=== PATIENT | female | born 1990 | race Hispanic/Latino ===

== ENCOUNTER → 2018-02-17 | Outpatient (CLI) | payer OTHER, SELFPAY ==
--- NOTE | 2018-02-17 | DI.MRI.S_ITS ---
PROCEDURE: MR HEAD/BRAIN WO/W CON INDICATIONS: headaches, numbness TECHNIQUE: Noncontrast axial T1 spin echo, axial T2 fast spin echo, sagittal and axial FLAIR, coronal T2 fast spin echo, axial gradient echo, axial diffusion and ADC through the brain. After the administration of contrast, axial and coronal 3D VIBE or T1 spin echo with fat saturation through the brain. COMPARISON: [facility], MR, BRAIN W/O CONTRAST, 04/17/2015, 8:28. FINDINGS: Image quality: Diagnostic pain CSF Spaces: Basal cisterns are patent. No extra-axial fluid collections. Ventricles are normal in size and shape. Brain: No midline shift. No intracranial bleeds or masses. No abnormal intracranial enhancement. The brainstem appears normal. Diffusion-weighted images demonstrate no acute ischemic insults. No chronic ischemic insults. No focal parenchymal lesions are identified. Normal intravascular flow voids are present. Skull and face: Calvarial marrow is normal in signal. Orbits appear normal. Sinuses: Sinuses and mastoids appear clear. IMPRESSION: 1. No acute intracranial hemorrhage or ischemia. 2. No focal parenchymal lesions or abnormal enhancement of the brain. Dictated by: Regan Giron M.D. on 02/17/2018 at 17:02 Approved by: Regan Giron M.D. on 02/17/2018 at 17:04
== END ==
LOC: MRI 16:58
PROVIDERS: Family Provider Internal Medicine; PCP Family Medicine; Visit Provider Family Medicine
DX: R51 Headache (principal); R20.0 Anesthesia of skin
CPT/HCPCS: 70553; A9579

== ENCOUNTER → 2018-06-30 13:06 | Outpatient (CLI) | payer OTHER, SELFPAY ==
--- NOTE | 2018-07-07 10:33 | PM.PFT.1 ---
Pulmonary Function Test Referral & Results Date Patient Seen: 06/30/18 Requesting provider: Rosendo Tierney Indication: Dyspnea Results: The spirometry demonstrates an FVC of 3.42 L which is 93% of predicted. The FEV1 was measured at 3.04 L which is 98% of predicted. The FEV1/FVC ratio was 89 which is 105% of predicted. Following the administration of bronchodilator there was no appreciable change in above normal numbers. Lung volumes show an SVC of 3.36 L which is 94% of predicted. The diffusing capacity was measured at 24.83 which is 180% of predicted. The maximum voluntary ventilation was normal Interpretation: This study demonstrates normal pulmonary function
== END ==
PROVIDERS: PCP Family Medicine; Visit Provider Family Medicine
DX: R06.00 Dyspnea, unspecified (principal)
CPT/HCPCS: 94010; 94060; 94726; 94729

== ENCOUNTER → 2018-11-10 09:59 | Outpatient (CLI) | payer OTHER, SELFPAY ==
--- NOTE | 2018-11-10 10:01 | DI.US.S_ITS ---
LIMITED ULTRASOUND OF LEFT BREAST: 11/10/2018 CLINICAL: Palpable left breast lump. [facility] of the left breast upper outer quadrant was performed on the area of interest. IMPRESSION: NEGATIVE There is no sonographic evidence of malignancy. There is no abnormality seen in the left breast to correspond with the palpable abnormality in the upper outer quadrant, however, clinical followup is recommended. This exam was interpreted at Station ID: [id number]. Electronically Signed By: Georges ahrry/:11/10/2018 12:34:30 letter sent: Clinical Evaluation Ultrasound BI-RADS: 1 Negative
--- NOTE | 2018-11-10 10:01 | DI.MG.S_ITS ---
BILATERAL DIGITAL DIAGNOSTIC MAMMOGRAM 3D/2D: 11/10/2018 CLINICAL: Left breast lump. Baseline exam. No prior exams were available for comparison. The tissue of both breasts is extremely dense, which lowers the sensitivity of mammography. No significant masses, calcifications, or other findings are seen in either breast. IMPRESSION: INCOMPLETE: NEEDS ADDITIONAL IMAGING EVALUATION There is no abnormality seen in the left breast to correspond with the palpable abnormality at 1 o'clock, however, ultrasound is recommended. This exam was interpreted at Station ID: [id number]. NOTE: For mammograms, a report in lay terms will be sent to the patient. Approximately 15% of breast malignancies will not be visualized mammographically. In the management of a palpable breast mass, a negative mammogram must not discourage biopsy of a clinically suspicious lesion. Electronically Signed By: Georges harry/bushra:11/10/2018 10:46:30 letter sent: Need Ultrasound ACR BI-RADS Category 0: Incomplete [id number]
== END ==
PROVIDERS: PCP Family Medicine; Visit Provider Registered Nurse
DX: R92.8 Other abnormal and inconclusive findings on diagnostic imaging of breast (principal); N63.21 Unspecified lump in the left breast, upper outer quadrant
CPT/HCPCS: 76642; 77066; G0279

== ENCOUNTER → 2019-01-21 08:34 | Outpatient (CLI) | payer OTHER, SELFPAY ==
--- NOTE | 2019-01-21 | DI.RAD.S_ITS ---
PROCEDURE: XR CERVICAL SPINE 2V OR 3V INDICATIONS: NECK PAIN RADIATING DOWN ARMS TECHNIQUE: 3 view(s) of the cervical spine were acquired. COMPARISON: None. FINDINGS: Bones: No fractures or dislocations to the T1 level. The lateral masses of C1 appear intact on the odontoid view. No suspicious bony lesions. Soft tissues: No prevertebral soft tissue swelling. IMPRESSION: Normal examination, source of current pain is not found. CT or MR scanning may be warranted depending on the clinical status. Dictated by: Tom Edward M.D. on 01/21/2019 at 11:35 Approved by: Tom Edward M.D. on 01/21/2019 at 11:35
== END ==
PROVIDERS: PCP Family Medicine; Visit Provider Family Medicine
DX: M54.2 Cervicalgia (principal); M79.602 Pain in left arm; M79.601 Pain in right arm
CPT/HCPCS: 72040

== ENCOUNTER → 2019-03-14 12:52 | Outpatient (CLI) | payer OTHER, SELFPAY ==
--- NOTE | 2019-03-14 | DI.CT.S_ITS ---
PROCEDURE: CT ABDOMEN W CON INDICATIONS: Gastro-esophageal reflux disease TECHNIQUE: After the administration of oral and intravenous contrast, 5 mm thick sections acquired from the diaphragms to the iliac crests. 5 mm thick coronal and sagittal reformats were acquired. For radiation dose reduction, the following was used: automated exposure control, adjustment of mA and/or kV according to patient size. COMPARISON: None. FINDINGS: Image quality: Excellent. Lung bases: Lung bases are clear. Heart size is normal. Solid organs: Liver is normal in size and enhancement. Gallbladder appears normal. Biliary system is non dilated. Pancreas enhances normally. Spleen is normal in size and enhancement. No adrenal nodules. Kidneys are normal in size, without hydronephrosis. Peritoneum and bowel: Contrast enhanced bowel loops appear normal in caliber. No free fluid or air. Nodes and vessels: No retroperitoneal or mesenteric adenopathy by size criteria. Aorta and inferior vena cava are normal in size. Bones: No suspicious bony lesions. No vertebral body compression fractures. Miscellaneous: No ventral hernias. IMPRESSION: The abdomen and upper pelvis appears normal. No sign of adenopathy or inflammation. A source of reported persistent abdominal pain extending over one year is not found. At the lung bases no lesions are seen. Dictated by: Tom Edward M.D. on 03/14/2019 at 15:13 Approved by: Tom Edward M.D. on 03/14/2019 at 15:15
== END ==
PROVIDERS: PCP Family Medicine; Visit Provider Family Medicine
DX: K21.9 Gastro-esophageal reflux disease without esophagitis (principal); R10.9 Unspecified abdominal pain
CPT/HCPCS: 74160; Q9967

== ENCOUNTER → 2019-05-15 16:43 | Outpatient (CLI) | payer OTHER, SELFPAY ==
--- NOTE | 2019-05-15 16:46 | DI.MRI.S_ITS ---
PROCEDURE: MR KNEE RT WO CON INDICATIONS: Six-month history popliteal fossa pain TECHNIQUE: Noncontrast sagittal PD fast spin echo and T2 fast spin echo with fat saturation, sagittal 3-D FLASH with fat saturation; coronal T1 spin echo and PD fast spin echo with fat saturation, and axial PD fast spin echo with fat saturation through the knee. COMPARISON: None. FINDINGS: Image quality: Excellent. Menisci: The medial and lateral menisci demonstrate normal morphology and internal signal. The meniscal root ligaments appear intact. Cruciate ligaments: The anterior and posterior cruciate ligaments appear intact. Medial structures: The medial collateral ligament appears intact. There is minimal semimembranosus insertional tendinopathy and thickening. Visualized portions of the pes anserinus tendons appear normal. No abnormal bursal fluid. Lateral structures: lateral collateral ligament demonstrates thickening and intrasubstance signal change in keeping with sprain, although technically age indeterminate. The biceps femoris tendon appears intact. The popliteus tendon appears normal; the popliteofibular ligament appears intact. The posterosuperior and anteroinferior popliteomeniscal fascicles appear intact. The arcuate and fabellofibular ligaments appear intact, on either side of the lateral inferior geniculate artery. Iliotibial band appears normal. Anterior structures: The quadriceps and patellar tendons appear intact although there is mild proximal patellar tendinopathy. Patellar alignment is normal. No femoral trochlear dysplasia or ventral trochlear prominence. No edema in the infrapatellar fat pad. Bones and cartilage: No bone marrow contusions or fractures. The The cartilage of the medial and lateral femorotibial compartments, as well as the patellofemoral compartment, appears normal in thickness. Joint space: There is physiologic knee joint fluid. No Carlos's cyst. Normal appearing synovial plicae are incidentally noted. IMPRESSION: Minimal semimembranosus insertional tendinopathy. Mild proximal lateral collateral ligament sprain, probably chronic. Mild proximal patellar tendinopathy, age indeterminate. Elsewhere, no internal derangement. Dictated by: Rony Kuo M.D. on 05/16/2019 at 9:06 Approved by: Rony Kuo M.D. on 05/16/2019 at 9:12
== END ==
PROVIDERS: PCP Family Medicine; Visit Provider Family Medicine
DX: S83.421A Sprain of lateral collateral ligament of right knee, initial encounter (principal); M76.51 Patellar tendinitis, right knee; M25.561 Pain in right knee
CPT/HCPCS: 73721

== ENCOUNTER → 2019-08-15 13:00 | Outpatient (CLI) | payer OTHER, SELFPAY ==
--- NOTE | 2019-08-15 13:01 | DI.US.S_ITS ---
PROCEDURE: US EXTREMITY NONVASC LOWER RT INDICATIONS: PAIN, LUMP LATERAL RIGHT THIGH TECHNIQUE: Real-time scanning was performed of the right mid thigh, with image documentation. COMPARISON: None. FINDINGS: No sonographic abnormality visualized involving the right mid lateral right thigh. IMPRESSION: No sonographic correlate to the palpable abnormality. If indicated, soft tissue MRI could be performed for further assessment. Dictated by: Garett CHAPARRO Interpreted: Georges Desir MD on 08/15/2019 at 13:51 Approved by: Georges Desir M.D. on 08/15/2019 at 15:45
== END ==
PROVIDERS: PCP Family Medicine; Visit Provider Nurse Practitioner Family
DX: R22.41 Localized swelling, mass and lump, right lower limb (principal)
CPT/HCPCS: 76882

== ENCOUNTER → 2019-08-21 06:22 | Outpatient (CLI) | payer OTHER, SELFPAY ==
--- NOTE | 2019-08-21 06:23 | DI.MRI.S_ITS ---
PROCEDURE: MR FEMUR RT WO/W CON INDICATIONS: lump upper right leg TECHNIQUE: Noncontrast coronal T1 spin echo and STIR, sagittal T1 spin echo with fat saturation and STIR, axial T1 spin echo and T2 fast spin echo with fat saturation. After the administration of contrast, axial/sagittal/coronal T1 spin echo with fat saturation through the right femur. COMPARISON: [facility], US, US EXTREMITY NONVASC LOWER RT, 08/15/2019, 13:10. FINDINGS: Image quality: Excellent. Bones: The visualized bone marrow demonstrates normal signal on all sequences. The overlying cortex appears intact. No abnormal intraosseous enhancement. Soft tissues: In the region of the fiducial posterolateral aspect of the upper right thigh, no underlying mass or discrete fluid collection is seen. There is normal fat signal intensity. Technically cannot exclude unencapsulated lipoma. This is concordant with the ultrasound findings from comparison study dated 08/15/19. Mild subcutaneous edema and skin thickening seen at the level of the right gluteal region potentially related to injections however please correlate clinically. Minimal trochanteric bursitis is incidentally noted. No lymphadenopathy identified. Muscle signal intensity unremarkable IMPRESSION: No discrete mass or focal fluid collection, abscess seen in the region of the skin fiducial marker placed in the lateral aspect of the upper right thigh. Technically, subtle unencapsulated lipoma is still a differential consideration and recommend clinical management. Minimal trochanteric bursitis. Right gluteal subcutaneous edema potentially related to injections however does correlate clinically. Dictated by: Rony Kuo M.D. on 08/21/2019 at 8:03 Approved by: Rony Kuo M.D. on 08/21/2019 at 8:10
== END ==
PROVIDERS: PCP Family Medicine; Visit Provider Nurse Practitioner Family
DX: R22.41 Localized swelling, mass and lump, right lower limb (principal)
CPT/HCPCS: 73720

== ENCOUNTER → 2019-11-11 08:58 | Outpatient (CLI) | payer OTHER, SELFPAY ==
--- NOTE | 2019-11-11 | DI.MRI.S_ITS ---
PROCEDURE: MR HEAD/BRAIN WO CON INDICATIONS: Chronic papilledema OU TECHNIQUE: Noncontrast axial T1 spin echo, axial T2 fast spin echo, sagittal and axial FLAIR, coronal T2 fast spin echo, axial gradient echo, axial diffusion and ADC through the brain. COMPARISON: [facility], MR, BRAIN W/O CONTRAST, 04/17/2015, 8:28. FINDINGS: Image quality: Excellent. CSF Spaces: Basal cisterns are patent. No extra-axial fluid collections. Ventricles are normal in size and shape. Brain: No intracranial masses or hemorrhage. Rice/white matter interface is normal. Brainstem appears normal. Diffusion-weighted images demonstrate no acute ischemic insult. No chronic ischemic insults. No GRE weighted abnormalities identified in the brain parenchyma. Normal intravascular flow voids are present. Skull and face: Calvarium has normal marrow signal. Slight prominence of CSF space along the intraorbital optic nerves compatible with clinical finding of papilledema. Sinuses: Mucosal thickening noted in the maxillary sinuses, left greater than right. The mastoids are clear. IMPRESSION: 1. No acute intracranial disease process. 2. Slight prominence of CSF space along the optic nerves bilaterally compatible with clinically reported papilledema. Cause of papilledema is not identified by MRI imaging. Dictated by: Shelby Bhatia MD, PhD on 11/12/2019 at 8:01 Approved by: Shelby Bhatia MD, PhD on 11/12/2019 at 8:07
--- NOTE | 2019-11-11 | DI.MRI.S_ITS ---
PROCEDURE: MR ANGIO HEAD WO CON INDICATIONS: CHRONIC PAPILLIDEMIA TECHNIQUE: Noncontrast axial 3-D [id number] MR angiogram, with 3-dimensional maximum intensity projection (MIP) reformats of the internal carotid arteries and posterior circulation then performed. COMPARISON: None. FINDINGS: Image quality: Excellent. Anterior circulation: Intracranial internal carotid arteries demonstrate normal size and intraluminal flow signal. The flow within the paired anterior cerebral arteries is normal and symmetric. The flow within the middle cerebral arteries is normal and symmetric. The anterior communicating artery is seen. No stenoses, occlusions, or aneurysms. Posterior circulation: Visualized portions of the vertebral arteries demonstrate normal caliber, and join to form a normal appearing basilar artery. The flow within the posterior cerebral arteries is normal and symmetric. No stenoses, occlusions, or aneurysms. IMPRESSION: 1. Negative MR angiogram of the brain. No large vessel occlusion, vascular stenosis, vascular dissection or aneurysm. 2. MR venogram demonstrates absence of flow in the left transverse sinus which could be due to congenital hypoplasia or occlusion. Recommend MRI of the brain with contrast for further characterization. Dictated by: Shelby Bhatia MD, PhD on 11/12/2019 at 11:25 Approved by: Shelby Bhatia MD, PhD on 11/12/2019 at 11:33
== END ==
PROVIDERS: PCP Family Medicine; Referring Provider Family Medicine; Visit Provider Family Medicine
DX: H47.10 Unspecified papilledema (principal)
CPT/HCPCS: 70544; 70551

== ENCOUNTER → 2019-11-26 10:05 | Outpatient (CLI) | payer OTHER, SELFPAY ==
--- NOTE | 2019-11-26 10:08 | DI.MRI.S_ITS ---
PROCEDURE: MR HEAD/BRAIN W CON INDICATIONS: PAPILLEDEMA TECHNIQUE: Noncontrast images were recently performed and were not repeated. After the administration of contrast, axial and coronal VIBE with fat saturation through the brain. COMPARISON: [facility], CT, HEAD WITHOUT CONTRAST, 03/19/2014, 16:31. [facility], MR, MR ANGIO HEAD WO CON, 11/11/2019, 9:03. [facility], MR, MR HEAD/BRAIN WO CON, 11/11/2019, 9:03. FINDINGS: Image quality: Excellent. On these postcontrast images only, no masses or areas of abnormal enhancement can be seen. The globes are scrutinized and demonstrate no significant abnormality. No significant abnormality of the optic nerves are seen. No orbital masses are seen. The brain volume demonstrates a normal appearance. No abnormal enhancement can be seen on the meninges. IMPRESSION: Normal post contrast only study. No masses or abnormal enhancement can be seen. Dictated by: Dorian Winters M.D. on 11/26/2019 at 11:30 Approved by: Dorian Winters M.D. on 11/26/2019 at 11:32
== END ==
PROVIDERS: PCP Family Medicine; Referring Provider Family Medicine; Visit Provider Family Medicine
DX: H47.10 Unspecified papilledema (principal)
CPT/HCPCS: 70552

== ENCOUNTER → 2020-03-25 14:30 | Outpatient (CLI) | payer OTHER, SELFPAY ==
--- NOTE | 2020-03-25 | DI.US.S_ITS ---
PROCEDURE: US EXTREMITY NONVASC LOWER RT INDICATIONS: LOCALIZED SWELLING, MASS, LUMP TECHNIQUE: Real-time scanning was performed of the right lower extremity, with image documentation. COMPARISON: [facility], EXTREMITY NONVASC LOWER RT, 08/15/2019, 13:10. FINDINGS: 0.9 x 0.5 x 0.5 cm soft tissue mass present within the right thigh corresponding to the palpable abnormality. Mass appears to have herniated through a soft tissue plane and is reducible with compression. IMPRESSION: Mass corresponding to the palpable abnormality within the right lower extremity which appears to have herniated through a soft tissue plane and is reducible with transducer compression. Dictated by: Garett Holloway [facility] Interpreted: Alexi Ash MD on 03/25/2020 at 16:25 Approved by: Alexi Ash M.D. on 03/25/2020 at 17:21
== END ==
PROVIDERS: PCP Family Medicine; Referring Provider Family Medicine; Visit Provider Family Medicine
DX: R22.41 Localized swelling, mass and lump, right lower limb (principal)
CPT/HCPCS: 76882

== ENCOUNTER → 2021-05-27 17:51 | Outpatient (CLI) | payer OTHER, SELFPAY ==
--- NOTE | 2021-05-27 17:55 | DI.RAD.S_ITS ---
PROCEDURE: XR SHOULDER LT MIN 2V INDICATIONS: left shoulder pain TECHNIQUE: 3 views of the shoulder were acquired. COMPARISON: None. FINDINGS: Bones: No fractures or dislocations. No suspicious bony lesions. Visualized ribs appear intact. Soft tissues: No suspicious soft tissue calcifications. IMPRESSION: No shoulder fracture or dislocation. No gross soft tissue abnormality. Dictated by: Alexi Ash M.D. on 05/27/2021 at 18:08 Approved by: Alexi Ash M.D. on 05/27/2021 at 18:10
== END ==
PROVIDERS: PCP Family Medicine; Referring Provider Registered Nurse; Visit Provider Registered Nurse
DX: M25.512 Pain in left shoulder (principal)
CPT/HCPCS: 73030

== ENCOUNTER → 2021-06-01 14:02 | Outpatient (CLI) | payer OTHER, SELFPAY ==
[2021-06-01 15:54] LABS: COVID19 -Nasal RAPID Negative (Negative)
== END ==
PROVIDERS: PCP Family Medicine; Visit Provider Nurse Practitioner
DX: Z20.822 Contact with and (suspected) exposure to COVID-19 (principal); J02.9 Acute pharyngitis, unspecified; R05 Cough
CPT/HCPCS: 87635

== ENCOUNTER 2021-06-16 17:28 | Emergency (ER) | payer OTHER, SELFPAY ==
[2021-06-16 17:51] VITALS: BP 161/89; PULSE 118; RESP 21; TEMP 37.9; O2SAT 100; BMI 32.8
[2021-06-16 18:37] LABS: COVID19 -Nasal RAPID Negative (Negative)
[2021-06-16 18:48] LABS: Add Manual Diff / Slide Review NO; Basophils Absolute Auto 0 /uL (0-100); Basophils Percent Auto 0.5 % (0-2); Eosinophils Absolute Auto 0 /uL (0-450); Eosinophils Percent Auto 0.3 % (2-4); Hematocrit 38.8 % (36-46); Hemoglobin 13.5 g/dL (12.0-16.0); Lymphocytes Absolute Auto 2000 /uL (1100-4500); Lymphocytes Percent Auto 40.4 % (25-40); Mean Corpuscular HGB Conc 34.8 % (30-36); Mean Corpuscular Hemoglobin 30.7 PG (26-34); Mean Corpuscular Volume 88.2 fL (80-100); Monocytes Absolute Auto 400 /uL (0-900); Monocytes Percent Auto 8.4 % (3-14); Neutrophils Absolute Auto 2500 /uL (1500-7000); Neutrophils Percent Auto 50.4 % (50-75); Platelet Count 141 X10^3/uL (150-400); Red Blood Cell Count 4.39 X10^6/uL (4.0-5.2); Red Cell Distribution Width 13.4 % (11.6-14.8)
[2021-06-16 18:59] LABS: Lactate (Lactic Acid) 1.9 mmol/L (0.7-2.1)
[2021-06-16 19:00] LABS: Alanine Aminotransferase 89 IU/L (<35); Albumin 4.7 g/dL (3.5-5.0); Albumin Globulin Ratio 1.3 (1.0-2.8); Alkaline Phosphatase 89 U/L (38-126); Aspartate Aminotransferase 92 IU/L (14-36); BUN Creatinine Ratio 12.8 (6-22); Bilirubin Total 1.8 mg/dL (0.2-1.3); Blood Urea Nitrogen 12 mg/dL (7-17); Calcium 9.7 mg/dL (8.4-10.2); Carbon Dioxide 27 mmol/L (22-32); Chloride 101 mmol/L (98-107); Estimated Glomerular Filt Rate > 60.0 mL/min (>60); Globulin 3.7 g/dL (1.7-4.1); Glucose 115 mg/dL (70-100); HEMOLYSIS < 15 (0-50); Lipase 158 U/L (23-300); Sodium 138 mmol/L (137-145); Total Protein 8.4 g/dL (6.3-8.2)
[2021-06-16 19:17] LABS: Procalcitonin 0.21 ng/mL (<0.5)
[2021-06-16] MEDS: SODIUM CHLORIDE 0.9% 1,000 ML 1000 ML IV ×2 (20:01→23:40)
--- NOTE | 2021-06-16 22:27 | ED.FEMALEGU ---
HPI - Female Genitourinary General Chief complaint: Abdominal Pain Stated complaint: kidney infection Time Seen by Provider: 06/16/21 22:16 Source: patient Mode of arrival: Ambulatory Limitations: no limitations History of Present Illness HPI Narrative: 31-year-old female with concern for kidney infection. Patient states she started having dysuria, frequency and urgency about a week ago. Her initial point of care urine was negative but her urine culture was positive for E coli. She was put on Macrobid for 3 days. She was feeling a bit better and then started to have fevers. She has not had any cold cough or congestion. No chest pain or shortness of breath. She denies any nausea or vomiting. She has had some lower abdominal discomfort that feels like pelvic cramping. She has developed a little bit of right flank discomfort. She states it is worse with movement. She has continued to have frequency and a sense of urgency but no dysuria. She has not any vaginal bleeding. She has not had any vaginal discharge. She is sexually active but in a monogamous relationship and does not have any suspicion for STDs she is otherwise healthy. No daily medications. No allergies to medications. No tobacco, alcohol or illicit. Related Data Home Medications Medication Instructions Recorded Confirmed multivitamin (Multiple Vitamins) 1 tab PO QDAY #0 03/17/17 05/11/21 Previous Rx's Medication Instructions Recorded diclofenac sodium 1 % topical gel 2 g TOPICAL QID PRN #100 g 05/11/21 (Voltaren Arthritis Pain) ciprofloxacin HCl 500 mg tablet 500 mg PO BID #14 tab 06/17/21 Allergies Allergy/AdvReac Type Severity Reaction Status Date / Time No Known Drug Allergies Allergy Verified 06/16/21 17:51 Review of Systems Review of Systems ROS Unobtainable: All systems reviewed & are unremarkable except as noted in HPI and below Patient History Medical History Anemia (~2017) BMI 34.0-34.9,adult Cervical somatic dysfunction Chronic back pain greater than 3 months duration (~2016) Chronic foot pain (~2019) Cranial somatic dysfunction Establishing care with new doctor, encounter for Fibromyalgia Foot pain (~2019) Gluten-sensitive enteropathy Hypertriglyceridemia Left shoulder pain Lumbar region somatic dysfunction Neck stiffness Need for lipid screening Pelvic somatic dysfunction Sacral region somatic dysfunction Screening for thyroid disorder Segmental and somatic dysfunction of abdomen and other regions Segmental and somatic dysfunction of rib cage Family History Father No problems noted. Mother No problems noted. Grandfather Alzheimer's disease Grandmother History of heart disease Substance Use Type: does not use Exam Narrative Exam Narrative: GENERAL: Alert and oriented x three, female in mild distress. HEENT: Head normocephalic, atraumatic, EOMI, pupils reactive, face symmetric, moist mucous membranes NECK: Supple, full range of motion CARDIOVASCULAR: Regular rate and rhythm without murmurs, rubs or gallops. RESPIRATORY: Breath sounds equal bilaterally, no wheezes rales or rhonchi. ABDOMEN: Soft, nontender. Normoactive bowel sounds all 4 quadrants. No guarding or rebound, rigidity, no mass, nondistended. : No CVA tenderness bilaterally. Female: external vaginal examl normal, no vaginal bleeding, the minimal clear discharge, no cervical motion tenderness, normal speculum exam, no adnexal tenderness/mass. Bimanual exam is normal, no enlarged or tender uterus. EXTREMITIES: Normal range of motion, no clubbing or edema. Neurovascularly intact NEUROLOGICAL: Cranial nerves II through XII grossly intact. Moving all extremities SKIN: Warm, dry, no petechiae, no rashes or lesions. Initial Vital Signs Initial Vital Signs: Vital Signs Temperature 100.3 F H 06/16/21 17:51 Pulse Rate 118 H 06/16/21 17:51 Respiratory Rate 21 06/16/21 17:51 Blood Pressure 161/89 H 06/16/21 17:51 Pulse Oximetry 100 06/16/21 17:51 Course Orders Ordered: ED Orders 06/16/21 19:55 Blood Culture Stat 06/16/21 23:05 Chlamydia/Gonoc/Myco Genital Stat Genital Culture Stat Wet Prep Tric BV Angie Stat 06/16/21 23:12 US abdomen complete Stat 06/17/21 00:27 Hepatitis Acute Panel Stat Discontinued Medications Acetaminophen (Acetaminophen 325 Mg Tablet) 975 mg PO NOW ONE Stop: 06/16/21 22:28 Last Admin: 06/16/21 22:55 Dose: 975 mg Documented by: MARICEL Azithromycin (Azithromycin 250 Mg Tablet) 1,000 mg PO NOW ONE Stop: 06/16/21 23:13 Last Admin: 06/16/21 23:40 Dose: 1,000 mg Documented by: ALEKSANDRA Sodium Chloride (Normal Saline 0.9%) 1,000 mls @ 1,000 mls/hr IV BOLUS ONE Stop: 06/16/21 18:58 Last Infusion: 06/16/21 22:43 Dose: 0 mls/hr Documented by: Admin: 06/16/21 20:01 Dose: 1,000 mls/hr Documented by: JORGE A Sodium Chloride (Normal Saline 0.9%) 1,000 mls @ 1,000 mls/hr IV BOLUS ONE Stop: 06/17/21 00:11 Last Infusion: 06/17/21 00:48 Dose: 0 mls/hr Documented by: Admin: 06/16/21 23:40 Dose: 1,000 mls/hr Documented by: ALEKSANDRA Ceftriaxone Sodium 1,000 mg/ (Sodium Chloride) 100 mls @ 200 mls/hr IV NOW ONE Stop: 06/16/21 23:13 Last Infusion: 06/17/21 00:36 Dose: 0 mls/hr Documented by: Admin: 06/16/21 23:40 Dose: 200 mls/hr Documented by: ALEKSANDRA Ibuprofen (Ibuprofen 400 Mg Tablet) 800 mg PO NOW ONE Stop: 06/16/21 23:30 Last Admin: 06/16/21 23:55 Dose: 800 mg Documented by: ALEKSANDRA Vital Signs Vital signs: Vital Signs - 8 hr 06/16/21 22:48 06/16/21 22:49 06/16/21 22:56 Temperature 100.7 F H Pulse Rate 98 H 101 H Respiratory Rate Blood Pressure 133/83 133/83 Pulse Oximetry 98 98 06/17/21 00:38 Temperature 99.1 F Pulse Rate 91 H Respiratory Rate 16 Blood Pressure 133/94 H Pulse Oximetry 99 MDM - Female Genitourinary Lab Data Result diagrams: 06/16/21 18:35 06/16/21 18:35 Labs: Lab Results 06/16/21 06/16/21 06/16/21 Range/Units 18:08 18:35 18:35 WBC 5.0 (4.5-11.0) X10^3/uL RBC 4.39 (4.0-5.2) X10^6/uL Hgb 13.5 (12.0-16.0) g/dL Hct 38.8 (36-46) % MCV 88.2 (80-100) fL MCH 30.7 (26-34) PG MCHC 34.8 (30-36) % RDW 13.4 (11.6-14.8) % Plt Count 141 L (150-400) X10^3/uL Neut % (Auto) 50.4 (50-75) % Lymph % (Auto) 40.4 H (25-40) % [place] % (Auto) 8.4 (3-14) % Eos % (Auto) 0.3 L (2-4) % Baso % (Auto) 0.5 (0-2) % Neut # (Auto) 2500 (0375-3084) /uL Lymph # (Auto) 2000 (1016-3563) /uL [place] # (Auto) 400 (0-900) /uL Eos # (Auto) 0 (0-450) /uL Baso # (Auto) 0 (0-100) /uL Sodium 138 (137-145) mmol/L Potassium 4.0 (3.4-5.1) mmol/L Chloride 101 (98-107) mmol/L Carbon Dioxide 27 (22-32) mmol/L BUN 12 (7-17) mg/dL Creatinine 0.94 (0.52-1.04) mg/dL Estimated GFR > 60.0 (>60) mL/min BUN/Creatinine Ratio 12.8 (6-22) Glucose 115 H (70-100) mg/dL Lactate (0.7-2.1) mmol/L Calcium 9.7 (8.4-10.2) mg/dL Total Bilirubin 1.8 H (0.2-1.3) mg/dL AST 92 H (14-36) IU/L ALT 89 H (<35) IU/L Alkaline Phosphatase 89 (38-126) U/L Total Protein 8.4 H (6.3-8.2) g/dL Albumin 4.7 (3.5-5.0) g/dL Globulin 3.7 (1.7-4.1) g/dL Albumin/Globulin Ratio 1.3 (1.0-2.8) Lipase 158 (23-300) U/L Procalcitonin 0.21 (<0.5) ng/mL SARS-CoV-2 (PCR) Negative (Negative) 06/16/21 Range/Units 18:35 WBC (4.5-11.0) X10^3/uL RBC (4.0-5.2) X10^6/uL Hgb (12.0-16.0) g/dL Hct (36-46) % MCV (80-100) fL MCH (26-34) PG MCHC (30-36) % RDW (11.6-14.8) % Plt Count (150-400) X10^3/uL Neut % (Auto) (50-75) % Lymph % (Auto) (25-40) % [place] % (Auto) (3-14) % Eos % (Auto) (2-4) % Baso % (Auto) (0-2) % Neut # (Auto) (3093-3498) /uL Lymph # (Auto) (6982-2402) /uL [place] # (Auto) (0-900) /uL Eos # (Auto) (0-450) /uL Baso # (Auto) (0-100) /uL Sodium (137-145) mmol/L Potassium (3.4-5.1) mmol/L Chloride (98-107) mmol/L Carbon Dioxide (22-32) mmol/L BUN (7-17) mg/dL Creatinine (0.52-1.04) mg/dL Estimated GFR (>60) mL/min BUN/Creatinine Ratio (6-22) Glucose (70-100) mg/dL Lactate 1.9 (0.7-2.1) mmol/L Calcium (8.4-10.2) mg/dL Total Bilirubin (0.2-1.3) mg/dL AST (14-36) IU/L ALT (<35) IU/L Alkaline Phosphatase (38-126) U/L Total Protein (6.3-8.2) g/dL Albumin (3.5-5.0) g/dL Globulin (1.7-4.1) g/dL Albumin/Globulin Ratio (1.0-2.8) Lipase (23-300) U/L Procalcitonin (<0.5) ng/mL SARS-CoV-2 (PCR) (Negative) Point of Care Testing Test Results Negative Urine Dip Bedside Urine Glucose Negative Bedside Urine Bilirubin - Negative Bedside Urine Ketone - Negative Urine Specific [place] 1.015 Bedside Urine Occult Blood - Negative Bedside Urine pH 6 Bedside Urine Protein - Negative Bedside Urine Urobilinogen - Negative Bedside Urine Nitrite - Negative Bedside Urine Leukocytes - Negative Esterase Imaging Data US - abdomen: Radiologist's Impression: liver is echogenic. negative abdominal US. MDM Narrative Medical decision making narrative: This is a 31-year-old female comes with fever,. Patient has had 1 course of antibiotics for UTI. She states she had negative UA but urine culture is positive for E coli and had 3 days of Macrobid. This about a week ago when she is has been having fevers and for pelvic cramping discomfort. Patient's physical exam does not show any acute changes. Pelvic exam shows discharge but is clear. Patient was initially covered for gonorrhea and chlamydia she does not have any signs of cervicitis or PID there h[place]. Urine culture was sent she has recently had a positive culture was covered with Rocephin. Given prescription for Cipro. Was noted she had elevated bilirubin as well as mildly elevated liver enzymes. Ultrasound shows echogenic liver but no other acute changes. Hepatitis panel was sent. Patient feels improved here. She has no other symptoms concerning for current upper respiratory infection. Patient COVID swab is negative. Blood cultures are obtained. At this time treating for presumptive UTI but patient has return if any worsening symptoms or not improving. Discharge Plan Departure Patient Disposition: Home Clinical Impression: Fever Instructions: DI for Fever (Symptom) -- Adult Activity Restrictions/Additional Instructions: Your exam today is reassuring but a clear cause of your infection has not been found. At this time were treating for a presumptive UTI but there is a possibility that you have a different infection causing her current symptoms. Cultures are pending. You have been treated with initial dose of antibiotics for possible cervicitis but I would continue on oral antibiotic for possible UTI. Your urine was reassuring but culture is pending. Hepatitis panel is also pending. Your ultrasound shows some possible fatty infiltrate but no other changes on exam your imaging. Continue Tylenol and/or ibuprofen for fevers. Take antibiotics until completely gone. Start your prescription tomorrow. Prescription sent to [facility] in [place]. Please return for persistent fevers, new headaches, chest pain or shortness of breath, persistent vomiting, new or worsening abdominal, back or flank pain. Black or bloody stools. Difficulty with urination, new vaginal discharge or other new or concerning symptoms. Prescriptions: New ciprofloxacin HCl 500 mg tablet 500 mg PO BID Qty: 14 RF: 0 No Action multivitamin [Multiple Vitamins] 1 EACH tablet 1 tab PO QDAY Qty: 0 RF: 0 diclofenac sodium [Voltaren Arthritis Pain] 1 % gel 2 g topical QID PRN (Reason: joint pain) Qty: 100 RF: 0 Referrals: Reji Bird DO [Primary Care Provider] -
[2021-06-16 22:48] VITALS: BP 133/83; PULSE 98; O2SAT 98
[2021-06-16 22:49] VITALS: BP 133/83; PULSE 101; O2SAT 98
[2021-06-16] MEDS: ACETAMINOPHEN 325 MG TABLET 975 MG PO (22:55)
[2021-06-16 22:56] VITALS: TEMP 38.2
--- NOTE | 2021-06-16 23:12 | DI.US.S_ITS ---
PROCEDURE: US ABDOMEN COMPLETE INDICATIONS: fever, mild lower/right flank pain, elevated lft TECHNIQUE: Real-time scanning was performed of the abdominal and retroperitoneal organs, with image documentation. COMPARISON: None. FINDINGS: Liver: Liver is normal in size and homogeneous in echotexture. Liver has diffuse increased echogenicity. No focal hepatic mass lesions. Gallbladder: Gallbladder is sonographically normal. No gallstones. No gallbladder wall thickening. Gallbladder wall measures 1.7 millimeters. No pericholecystic fluid. No sonographic Pickens sign. Biliary ducts: Intrahepatic bile ducts are non-dilated. Extrahepatic bile duct caliber measures 2.9 mm. Normal is 6-7 mm or less in diameter, or 10 mm or less post-cholecystectomy. Pancreas: Visualized portions of the pancreas are sonographically normal. Spleen: Spleen is normal in size and homogeneous in echotexture. Kidneys: Kidneys are normal in size and echotexture. Right kidney measures 10.5 cm long; left kidney measures 11.8 cm long. No hydronephrosis or nephrolithiasis. No solid masses. Aorta: Visualized aorta is normal in caliber at less than 3 cm. Iliacs: Proximal common iliac arteries are normal in caliber at less than 2.5 cm. IVC: Intrahepatic inferior vena cava is patent. Miscellaneous: No free abdominal fluid. IMPRESSION: 1. No sonographic evidence of cholelithiasis, cholecystitis or biliary obstruction. 2. No renal stone or hydronephrosis. 3. Echogenic liver. Finding typically represents fatty infiltration; however, finding is nonspecific and correlation with clinical and laboratory findings is recommended to exclude other etiologies including hepatic cirrhosis. Dictated by: Shelby Bhatia MD, PhD on 06/17/2021 at 7:32 Approved by: Shelby Bhatia MD, PhD on 06/17/2021 at 7:33
[2021-06-16] MEDS: AZITHROMYCIN 250 MG TABLET 1000 MG PO (23:40)
[2021-06-16] MEDS: cefTRIAXone 1,000 MG in SODIUM CHLORIDE 0.9% 100 ML 200 ML IV (23:40)
[2021-06-16] MEDS: IBUPROFEN 400 MG TABLET 800 MG PO (23:55)
[2021-06-17 00:38] VITALS: BP 133/94; PULSE 91; RESP 16; TEMP 37.3; O2SAT 99
[2021-06-18 01:07] LABS: HBsAg Screen Negative (Negative); Hepatitis A Antibody IgM Negative (Negative); Hepatitis B Core Antibody IgM Negative (Negative); Hepatitis C Antibody <0.1 s/co ratio (0.0-0.9)
[2021-06-19 15:42] LABS: Chlamydia trachomatis Negative (Negative); Mycoplasma genitalium Negative (Negative); Neisseria gonorrhoeae Negative (Negative)
== END 2021-06-17 00:50 | disposition home or self-care (01) ==
PROVIDERS: Emergency Medicine; Emergency Provider Emergency Medicine; PCP Family Medicine
DX: R50.9 Fever, unspecified (principal); R10.2 Pelvic and perineal pain; Z20.822 Contact with and (suspected) exposure to COVID-19
CPT/HCPCS: 36415; 76700; 80053; 80074; 81003; 81025; 83605; 83690; 84145; 85025; 87040; 87070; 87086; 87205; 87210; 87491; 87563; 87591; 87635; 96361; 96365; 99284; 99285; C9803; J0696

== ENCOUNTER → 2021-10-20 08:52 | Outpatient (CLI) | payer OTHER, SELFPAY | PROVIDERS: PCP Family Medicine; Visit Provider Student in an Organized Health Care Education/Training Program | DX: R30.0 Dysuria (principal) | CPT/HCPCS: 87077; 87086; 87186 ==

== ENCOUNTER → 2023-07-14 12:06 | Outpatient (CLI) | payer OTHER, SELFPAY | PROVIDERS: PCP Family Medicine; Visit Provider Nurse Practitioner Family | DX: R30.0 Dysuria (principal); N89.8 Other specified noninflammatory disorders of vagina | CPT/HCPCS: 87086; 87210 ==

== ENCOUNTER 2023-09-21 08:54 | Emergency (ER) | payer OTHER, SELFPAY ==
[2023-09-21 09:03] VITALS: BP 177/88; PULSE 87; RESP 16; TEMP 36.3; O2SAT 99; BMI 32.8
--- NOTE | 2023-09-21 09:11 | DI.RAD.S_ITS ---
PROCEDURE: XR KNEE RT 3V INDICATIONS: snowboarding accident R knee pain TECHNIQUE: 3 views of the knee were acquired. COMPARISON: None. FINDINGS: Bones: No fractures or dislocations. No suspicious bony lesions. Soft tissues: No joint effusion. No suspicious soft tissue calcifications. IMPRESSION: No acute fracture. No osseous lesion. If symptoms and/or clinical suspicion for pathology persist, further assessment with repeat, or advanced imaging (e.g., CT, MRI, or bone scan) may be helpful for further assessment. Dictated by: Grey Esposito M.D. on 09/21/2023 at 9:52 Approved by: Grey Esposito M.D. on 09/21/2023 at 9:52
[2023-09-21 09:43] VITALS: PULSE 70
[2023-09-21 10:22] VITALS: BP 141/88; PULSE 87; RESP 18; O2SAT 98
[2023-09-21 11:24] VITALS: BP 132/86; PULSE 71; RESP 16; TEMP 36.9; O2SAT 98
--- NOTE | 2023-09-21 12:17 | ED.LOWEXIN ---
HPI - Extremity Injury (Lower) <Rosita Joyner PA-C - Last Filed: 09/21/23 13:23> General Chief Complaint: Extremity Injury, Lower Stated Complaint: FALL T-1/ UNABLE TO PUT WEIGHT ON R/LEG Time Seen by Provider: 09/21/23 09:13 History of Present Illness HPI Narrative: Patient is a 33-year-old female who fell while snowboarding yesterday. She immediately felt a pop and pain in her right knee. She was able to ambulate and applied ice. This morning upon waking she noted that the knee feels much more stiff and is painful along the medial aspect. She reports a decreased range of motion of the knee. She denies any distal tingling or pain. She is not taken any medication for this morning. Related Data Home Medications Medication Instructions Recorded Confirmed doxylamine succinate 25 mg tablet 25 mg PO BEDTIME PRN 11/25/21 07/14/23 (Unisom (doxylamine)) prenat.vits,дмитрий,[id number] 1 tab PO DAILY 11/25/21 07/14/23 pyridoxine (vitamin B6) 100 mg 50 mg PO DAILY 11/25/21 07/14/23 tablet Allergies Allergy/AdvReac Type Severity Reaction Status Date / Time No Known Drug Allergies Allergy Verified 07/14/23 12:09 Review of Systems <Rosita Joyner PA-C - Last Filed: 09/21/23 13:23> Review of Systems ROS Unobtainable: All systems reviewed & are unremarkable except as noted in HPI and below Patient History <Rosita Joyner PA-C - Last Filed: 09/21/23 13:23> Medical History Left shoulder pain Hypertriglyceridemia Gluten-sensitive enteropathy Need for lipid screening Screening for thyroid disorder BMI 34.0-34.9,adult Segmental and somatic dysfunction of abdomen and other regions Segmental and somatic dysfunction of rib cage Pelvic somatic dysfunction Sacral region somatic dysfunction Lumbar region somatic dysfunction Cervical somatic dysfunction Cranial somatic dysfunction Neck stiffness Foot pain (~2018) Anemia (~2018) Chronic foot pain (~2019) Chronic back pain greater than 3 months duration (~2016) Fibromyalgia Establishing care with new doctor, encounter for Family History Father No problems noted. Mother No problems noted. Grandfather Alzheimer's disease Grandmother History of heart disease Social History marital status: number of children: 1 household members: spouse and children lives independently: Yes housing: house pets and animals: Yes (Dog) education level: college occupational status: employed current occupational exposures/hazards: No seatbelt use: always water heater temp set < 120 deg: Yes working smoke detector in home: Yes fire extinguisher in home: Yes carbon monox detector in home: Yes firearms in home: No do you feel safe at home: Yes Smoking Status: Never smoker second hand exposure: No alcohol intake: never substance use type: does not use during the past year weight has: remained stable well-balanced diet: daily or most days daily servings fruits/ve-4 caffeine: No Type(s) of exercise: walking and regular exercise frequency: 3-4 times per week Smoking Status: Never smoker Substance Use Type: does not use Exam <Rosita Joyner PA-C - Last Filed: 09/21/23 13:23> Narrative Exam Narrative: GENERAL: 33 year old patient appears stated age. Well-developed patient, in no distress. NEURO: AOx3. HEAD: Atraumatic. Normocephalic. EYES: Pupils equal round and reactive. Extraocular motions intact. No scleral icterus. No injection or drainage. ENT: Nose without bleeding or purulent drainage. Airway patent. RESPIRATORY: No distress. EXTREMITIES: No appreciable edema of the right knee. Tender to palpation over the superior medial aspect, no pain with palpation of the patella, inferior of the patella or laterally. Patient endorses dyspnea for with valgus stress. No joint laxity noted. Distal circulation intact. SKIN: No rash or erythema of visible areas Initial Vital Signs Initial Vital Signs: Vital Signs Temperature 97.4 F L 09/21/23 09:03 Pulse Rate 87 09/21/23 09:03 Respiratory Rate 16 09/21/23 09:03 Blood Pressure 177/88 H 09/21/23 09:03 Pulse Oximetry 99 09/21/23 09:03 Oxygen Delivery Method Room Air 09/21/23 09:03 <Thelma Wang MD - Last Filed: 09/21/23 18:07> Initial Vital Signs Initial Vital Signs: Vital Signs Temperature 97.4 F L 09/21/23 09:03 Pulse Rate 87 09/21/23 09:03 Respiratory Rate 16 09/21/23 09:03 Blood Pressure 177/88 H 09/21/23 09:03 Pulse Oximetry 99 09/21/23 09:03 Oxygen Delivery Method Room Air 09/21/23 09:03 Course <Rosita Joyner PA-C - Last Filed: 09/21/23 13:23> Orders Ordered: ED Orders 09/21/23 09:11 XR knee RT 3V Stat Vital Signs Vital signs: Vital Signs - 8 hr 09/21/23 10:22 09/21/23 11:24 Temperature 98.4 F Pulse Rate 87 71 Respiratory Rate 18 16 Blood Pressure 141/88 H 132/86 Pulse Oximetry 98 98 Oxygen Delivery Method Room Air Room Air <Thelma Wang MD - Last Filed: 09/21/23 18:07> Orders Ordered: ED Orders 09/21/23 09:11 XR knee RT 3V Stat Vital Signs Vital signs: Vital Signs - 8 hr 09/21/23 10:22 09/21/23 11:24 Temperature 98.4 F Pulse Rate 87 71 Respiratory Rate 18 16 Blood Pressure 141/88 H 132/86 Pulse Oximetry 98 98 Oxygen Delivery Method Room Air Room Air MDM - Extremity Injury (Lower) <NEETU Ritchie Last Filed: 09/21/23 13:23> Imaging Data Extremity x-ray #1: Radiologist's Impression: PROCEDURE: XR KNEE RT 3V INDICATIONS: snowboarding accident R knee pain TECHNIQUE: 3 views of the knee were acquired. COMPARISON: None. FINDINGS: Bones: No fractures or dislocations. No suspicious bony lesions. Soft tissues: No joint effusion. No suspicious soft tissue calcifications. IMPRESSION: No acute fracture. No osseous lesion. If symptoms and/or clinical suspicion for pathology persist, further assessment with repeat, or advanced imaging (e.g., CT, MRI, or bone scan) may be helpful for further assessment. Dictated by: Grey Esposito M.D. on 09/21/2023 at 9:52 Approved by: Grey Esposito M.D. on 09/21/2023 at 9:52 MDM Narrative Medical decision making narrative: Multiple etiologies for patient's symptoms considered including, but not limited to: Fracture, dislocation, strain of soft tissues. X-ray without evidence of fracture or dislocation. No evidence of significant swelling or effusion on exam. Discussed management of knee injuries to include conservative management with RICE, PT if not improved after 2 weeks, potential referral to Orthopedics if not improved with physical therapy. Advised patient to use a splint from the drug store for comfort and support. Patient's symptoms improved over duration of stay with above-stated therapies. Findings and discharge diagnosis discussed with patient/family followed by verbalization of understanding Return precautions discussed with patient/family whom verbalize understanding of diagnosis and plan Discharge Plan Departure Patient Disposition: Home Clinical Impression: Derangement of right knee Instructions: DI for Knee Sprain, How To Perform RICE (Rest, Ice, Compress, Elevate) Activity Restrictions/Additional Instructions: *You have been diagnosed with right knee soft tissue injury. There is no evidence of bony injury on your x-ray. I placed a referral to physical therapy; if your knee not feeling better after 2 weeks of conservative treatment as listed below, please contact physical therapy to schedule an evaluation. You may also follow up with Orthopedics if your pain persists. I would suggest buying a knee brace at the pharmacy to provide compression and support. There is no evidence that gentle weight-bearing as tolerated we will further injury or knee. You have been diagnosed with a musculoskeletal injury. You are advised to use R: rest. take it easy and listen to your body! I: ice. apply ice for 20 minutes every 2 hours while awake. Do not put ice directly on the skin. C: compression. Gentle compression with sunil wrap or splint will decrease pain and swelling. E: elevation. Keep extremity elevated above the heart whenever possible. Use ibuprofen for inflammation and pain. Take 600 mg (3 tablets) every 6 hours with food for the next 2-3 days, then as needed for pain. *What to do: *Please continue to take your regular medications as directed. [ ] New medication prescriptions sent to your pharmacy: [ ] [ ] New medication written as a paper prescription [x] No new medications given *Please follow up with your primary care provider in 2-3 days, call for an appointment. Let them know you were seen in the Emergency Department and that we ask that you be seen in follow up. We will electronically transmit a record of today's note if your PCP is in our system *If you do not have a primary care provider please contact the [facility] Resource line at [phone]. They will ask some questions about your medical history and help get you set up with a doctor in the community. *Return to Emergency Department if you should have any new, worsening or concerning symptoms, such as [fever greater than 101 F, shaking chills, worsening pain, persistent vomiting or other concerning symptoms]. Prescriptions: No Action prenat.vits,дмитрий,[id number] Tablet 1 tab PO DAILY pyridoxine (vitamin B6) 100 mg tablet 50 mg PO DAILY Unisom (doxylamine) 25 mg tablet 25 mg PO BEDTIME PRN Referrals: [facility] [Provider Group] [facility] [Outside] Brooks Bird DO [Primary Care Provider] - Stand Alone Forms: Patient Portal/API ED Sign-out <Thelma Wang MD - Last Filed: 09/21/23 18:07> Cosign ED Attending [place] Attestation: I was immediately available in the department for consultation throughout this patient's visit. Thelma Wang MD
== END 2023-09-21 11:29 | disposition home or self-care (01) ==
PROVIDERS: Emergency Provider Physician Assistant; PCP Family Medicine
DX: M23.91 Unspecified internal derangement of right knee (principal)
CPT/HCPCS: 73562; 99283

== ENCOUNTER → 2023-10-04 17:00 | Outpatient (CLI) | payer OTHER, SELFPAY ==
--- NOTE | 2023-10-04 | DI.MRI.S_ITS ---
PROCEDURE: MR KNEE RT WO CON INDICATIONS: R/O MENISCUS TEAR TECHNIQUE: Noncontrast sagittal PD fast spin echo and T2 fast spin echo with fat saturation, sagittal 3-D FLASH with fat saturation; coronal T1 spin echo and PD fast spin echo with fat saturation, and axial PD fast spin echo with fat saturation through the knee. COMPARISON: [facility], MR, MR KNEE RT WO CON, 05/15/2019, 17:00. [facility], CR, XR KNEE RT 3V, 09/21/2023, 9:36. FINDINGS: Image quality: Diagnostic Menisci: Medial: There is a small horizontal tear near the meniscal capsular junction of the posterior horn. This may be degenerative. Lateral: Intact. Meniscopopliteal fascicles maintained. Cruciate ligaments: Overall intact Medial structures: MCL: [id number] edema surrounding the ligament. There is also mild signal abnormality at the distal aspect Pes anserine tendons: Mild bursitis Semimembranosus: Mild insertional tendinopathy Lateral structures: LCL: Mild thickening of the proximal aspect as before, likely from prior injury Biceps femoris: Mild insertional tendinopathy IT band: Intact Popliteus tendon: Intact Anterior structures: Extensor mechanism: Mild edema at the patellar origin Fat pads: No pathologic edema Medial retinaculum: Mild edema at the femoral origin Trochlea: Unremarkable morphology. Bone and joint: Bones: Focal edema is seen at the posterolateral femoral condyle. Cartilage: No full-thickness defect. There is partial thickness loss in the patella, without subchondral edema Joint space: No significant effusion. Carlos's cyst: None Soft tissues: No significant vascular or other soft tissue pathology. IMPRESSION: Focal bone contusion in the posterolateral femoral condyle. Suspect small, possibly degenerative horizontal tear at the posterior horn the medial meniscus near the meniscal capsular junction. No significant tear elsewhere. Moderate sprain of the MCL. Mild insertional tendinopathy of the semimembranosus and bursitis of the pes anserine tendons. Intact cruciate ligaments. Mild patellar tendon origin tendinopathy. Mild insertional tendinopathy of the biceps femoris. Dictated by: Wan Braxton M.D. on 10/05/2023 at 10:14 Approved by: Wan Braxton M.D. on 10/05/2023 at 10:21
== END ==
PROVIDERS: PCP Family Medicine; Referring Provider Orthopaedic Surgery; Visit Provider Orthopaedic Surgery
DX: S80.01XA Contusion of right knee, initial encounter (principal); S83.411A Sprain of medial collateral ligament of right knee, initial encounter; M23.91 Unspecified internal derangement of right knee; M70.51 Other bursitis of knee, right knee
CPT/HCPCS: 73721

== ENCOUNTER 2024-10-15 15:57 | Emergency (ER) | payer OTHER, SELFPAY ==
[2024-10-15 16:01] VITALS: PULSE 92; RESP 16; O2SAT 100; BMI 34.5
--- NOTE | 2024-10-15 16:06 | DI.RAD.S_ITS ---
PROCEDURE: XR CHEST 1V INDICATIONS: chest pain TECHNIQUE: One view of the chest was acquired. COMPARISON: None. FINDINGS: Surgical changes and devices: None. Lungs and pleura: Lungs are clear. No pleural effusions or pneumothorax. Mediastinum: Mediastinal contours appear normal. Heart size is normal. Bones and chest wall: No suspicious bony lesions. Overlying soft tissues appear unremarkable. IMPRESSION: No acute cardiopulmonary abnormality is seen. Dictated by: Moisés Benz M.D. on 10/15/2024 at 16:31 Approved by: Moisés Benz M.D. on 10/15/2024 at 16:31
--- NOTE | 2024-10-15 16:06 | EKG_ITS ---
[address] [address] Test Date: 2024-10-15 Pat Name: Beverly Moss Department: 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
[2024-10-15 16:29] LABS: Add Manual Diff / Slide Review NO; Basophils Absolute Auto 0 /uL (0-100); Basophils Percent Auto 0.3 % (0-2); Eosinophils Absolute Auto 100 /uL (0-450); Eosinophils Percent Auto 1.4 % (2-4); Hematocrit 37.6 % (36-46); Hemoglobin 13.2 g/dL (12.0-16.0); Lymphocytes Absolute Auto 2500 /uL (1100-4500); Lymphocytes Percent Auto 39.7 % (25-40); Mean Corpuscular HGB Conc 35.1 % (30-36); Mean Corpuscular Hemoglobin 30.8 PG (26-34); Mean Corpuscular Volume 87.8 fL (80-100); Monocytes Absolute Auto 500 /uL (0-900); Monocytes Percent Auto 8.3 % (3-14); Neutrophils Absolute Auto 3100 /uL (1500-7000); Neutrophils Percent Auto 50.3 % (50-75); Platelet Count 231 X10^3/uL (150-400); Red Blood Cell Count 4.28 X10^6/uL (4.0-5.2); Red Cell Distribution Width 13.5 % (11.6-14.8); White Blood Cell Count 6.2 X10^3/uL (4.5-11.0)
[2024-10-15 16:36] LABS: INR 1.1 (0.9-1.3); Prothrombin Time 12.3 SECONDS (9.4-12.5)
[2024-10-15 16:39] LABS: Alanine Aminotransferase 23 IU/L (<35); Albumin 4.6 g/dL (3.5-5.0); Albumin Globulin Ratio 1.4 (1.0-2.8); Alkaline Phosphatase 64 U/L (38-126); Aspartate Aminotransferase 24 IU/L (14-36); BUN Creatinine Ratio 13.8 (6-22); Blood Urea Nitrogen 12 mg/dL (7-17); Calcium 9.3 mg/dL (8.4-10.2); Carbon Dioxide 23 mmol/L (22-32); Chloride 105 mmol/L (98-107); Creatine Kinase 47 U/L (30-135); Estimated Glomerular Filt Rate > 60 mL/min (>60); Globulin 3.3 g/dL (1.7-4.1); Glucose 104 mg/dL (70-100); HEMOLYSIS < 15 (0-50); Lipase 87 U/L (23-300); PTT Partial Thromboplastin Tim 33 SECONDS (25.1-36.5); Potassium 3.7 mmol/L (3.4-5.1); Sodium 136 mmol/L (137-145); Total Protein 7.9 g/dL (6.3-8.2)
[2024-10-15 16:51] LABS: NT-proBNP (BNP-Adult 18+) < 20 pg/mL (<125); Troponin I < 0.012 ng/mL (0.01-0.034)
[2024-10-15 20:30] LABS: Troponin I < 0.012 ng/mL (0.01-0.034)
[2024-10-15 21:00] VITALS: BP 168/97; PULSE 89; O2SAT 100
[2024-10-15 23:23] VITALS: BP 166/88; PULSE 84; O2SAT 98
[2024-10-15 23:30] VITALS: BP 145/80; PULSE 83; O2SAT 97
[2024-10-15] MEDS: ASPIRIN 81 MG CHEW TAB 324 MG PO (23:37)
--- NOTE | 2024-10-15 23:51 | ED_ITS ---
HPI - Chest Pain General Chief Complaint: Chest Pain Stated Complaint: Chest pressure/squeezing Time Seen by Provider: 10/15/24 22:19 Source: patient Mode of arrival: Ambulatory History of Present Illness HPI narrative: 34-year-old female with no known history of coronary artery disease, complains of intermittent left anterior chest discomfort since last night and through the day today. She can not recall any particular activities or positions that bring on the symptoms. No associated palpitation or heart fast racing symptoms. No syncope or presyncope. No nausea or vomiting. No associated diaphoresis. Episodes are brief and self-limited. She had not really eat through the day today at work as her job as a certified social workers in health care because she was so busy. Unclear if any response to any food since she had not eaten. No history of dyspepsia or gallbladder problems known. No fevers or chills. No recent cough, no shortness of breath. She denies cardiac risk factors: No diabetes, has borderline hypertension but no medications, has had high triglyceride in the past dietary treatment without medication thus far, nonsmoker never smoker, no family history of known coronary artery disease at this or even older ages. No previous cardiac provocative stress testing. Related Data Home Medications Medication Instructions Recorded Confirmed doxylamine succinate 25 mg tablet 25 mg PO BEDTIME PRN 11/25/21 07/14/23 (Unisom (doxylamine)) prenat.vits,дмитрий,[id number] 1 tab PO DAILY 11/25/21 07/14/23 pyridoxine (vitamin B6) 100 mg 50 mg PO DAILY 11/25/21 07/14/23 tablet Allergies Allergy/AdvReac Type Severity Reaction Status Date / Time No Known Drug Allergies Allergy Verified 10/15/24 16:05 Patient History Medical History Left shoulder pain Hypertriglyceridemia Gluten-sensitive enteropathy Need for lipid screening Screening for thyroid disorder BMI 34.0-34.9,adult Segmental and somatic dysfunction of abdomen and other regions Segmental and somatic dysfunction of rib cage Pelvic somatic dysfunction Sacral region somatic dysfunction Lumbar region somatic dysfunction Cervical somatic dysfunction Cranial somatic dysfunction Neck stiffness Foot pain (~2018) Anemia (~2018) Chronic foot pain (~2019) Chronic back pain greater than 3 months duration (~2016) Fibromyalgia Establishing care with new doctor, encounter for Family History Father No problems noted. Mother No problems noted. Grandfather Alzheimer's disease Grandmother History of heart disease Social History marital status: number of children: 1 household members: spouse and children lives independently: Yes housing: house pets and animals: Yes (Dog) education level: college occupational status: employed current occupational exposures/hazards: No seatbelt use: always water heater temp set < 120 deg: Yes working smoke detector in home: Yes fire extinguisher in home: Yes carbon monox detector in home: Yes firearms in home: No do you feel safe at home: Yes Smoking Status: Never smoker second hand exposure: No alcohol intake: never substance use type: does not use during the past year weight has: remained stable well-balanced diet: daily or most days daily servings fruits/ve-4 caffeine: No Type(s) of exercise: walking and regular exercise frequency: 3-4 times per week Smoking Status: Never smoker Exam Narrative Exam Narrative: GENERAL: Well-developed patient, in mild distress. HEAD: Atraumatic. Normocephalic. EYES: Pupils equal round and reactive. Extraocular motions intact. No scleral icterus. No injection or drainage. ENT: Nose without bleeding, purulent drainage. Throat without erythema, tonsillar hypertrophy or exudate. Airway patent. NECK: Trachea midline. Non tender CARDIOVASCULAR: Regular rate and rhythm without murmurs, gallops, or rubs. RESPIRATORY: Clear to auscultation. Breath sounds equal bilaterally. No wheezes, rales, or rhonchi. GASTROINTESTINAL: Abdomen soft, non-tender, nondistended. EXTREMITIES: No edema or joint tenderness. BACK: Nontender without deformity or crepitance. No flank tenderness. NEURO: AOx3. Motor functions grossly nonfocal SKIN: No rash or erythema of visible areas Initial Vital Signs Initial Vital Signs: Vital Signs Pulse Rate 92 H 10/15/24 16:01 Respiratory Rate 16 10/15/24 16:01 Pulse Oximetry 100 10/15/24 16:01 Oxygen Delivery Method Room Air 10/15/24 16:01 Scores HEART Score Heart Score history: Slightly Suspicious Heart Score EKG: Normal Heart Score Age: < 45 years old Heart Score risk factors: No known risk factors Heart Score troponin: < or = to normal limit Heart Score Total: 0 Course Orders Ordered: ED Orders 10/15/24 20:00 Troponin I Stat Discontinued Medications Aspirin (Aspirin 81 Mg Chew Tab) 324 mg PO NOW ONE Stop: 10/15/24 16:07 Last Admin: 10/15/24 23:37 Dose: 324 mg Documented By: MARY Vital Signs Vital signs: Vital Signs - 8 hr 10/15/24 21:00 10/15/24 23:23 10/15/24 23:23 Pulse Rate 89 84 Respiratory Rate Blood Pressure 168/97 H 166/88 H Pulse Oximetry 100 98 Oxygen Delivery Method Room Air 10/15/24 23:30 10/15/24 23:30 10/16/24 00:00 Pulse Rate 83 Respiratory Rate Blood Pressure 145/80 H 141/82 H Pulse Oximetry 97 Oxygen Delivery Method 10/16/24 00:00 10/16/24 00:30 10/16/24 00:30 Pulse Rate 74 77 Respiratory Rate 18 Blood Pressure 146/82 H Pulse Oximetry 97 99 Oxygen Delivery Method 10/16/24 01:00 10/16/24 01:00 Pulse Rate 72 Respiratory Rate Blood Pressure 145/84 H Pulse Oximetry 97 Oxygen Delivery Method MDM - Chest Pain Lab Data Attestation: I reviewed the patient's lab results. Lab results narrative: White blood cell count 6200, hemoglobin 13.2, platelets adequate. Basic metabolic panel unremarkable. Liver functions and lipase normal. Troponin negative and unmeasurable x2 sequential sets 10/15/24 16:15 10/15/24 16:15 Labs: Lab Results 10/15/24 10/15/24 Range/Units 16:15 20:00 WBC 6.2 (4.5-11.0) X10^3/uL RBC 4.28 (4.0-5.2) X10^6/uL Hgb 13.2 (12.0-16.0) g/dL Hct 37.6 (36-46) % MCV 87.8 (80-100) fL MCH 30.8 (26-34) PG MCHC 35.1 (30-36) % RDW 13.5 (11.6-14.8) % Plt Count 231 (150-400) X10^3/uL Neut % (Auto) 50.3 (50-75) % Lymph % (Auto) 39.7 (25-40) % [place] % (Auto) 8.3 (3-14) % Eos % (Auto) 1.4 L (2-4) % Baso % (Auto) 0.3 (0-2) % Neut # (Auto) 3100 (8119-6865) /uL Lymph # (Auto) 2500 (4957-1548) /uL [place] # (Auto) 500 (0-900) /uL Eos # (Auto) 100 (0-450) /uL Baso # (Auto) 0 (0-100) /uL PT 12.3 (9.4-12.5) SECONDS INR 1.1 (0.9-1.3) APTT 33 (25.1-36.5) SECONDS Sodium 136 L (137-145) mmol/L Potassium 3.7 (3.4-5.1) mmol/L Chloride 105 (98-107) mmol/L Carbon Dioxide 23 (22-32) mmol/L BUN 12 (7-17) mg/dL Creatinine 0.87 (0.52-1.04) mg/dL Estimated GFR > 60 (>60) mL/min BUN/Creatinine Ratio 13.8 (6-22) Glucose 104 H (70-100) mg/dL Calcium 9.3 (8.4-10.2) mg/dL Magnesium 2.0 (1.6-2.3) mg/dL Total Bilirubin 1.0 (0.2-1.3) mg/dL AST 24 (14-36) IU/L ALT 23 (<35) IU/L Alkaline Phosphatase 64 (38-126) U/L Total Creatine Kinase 47 (30-135) U/L Troponin I < 0.012 < 0.012 (0.01-0.034) ng/mL NT-Pro-B Natriuret Pep < 20 (<125) pg/mL Total Protein 7.9 (6.3-8.2) g/dL Albumin 4.6 (3.5-5.0) g/dL Globulin 3.3 (1.7-4.1) g/dL Albumin/Globulin Ratio 1.4 (1.0-2.8) Lipase 87 (23-300) U/L Imaging Data Chest x-ray: Radiologist's Impression: [address] [address] XRay Report Signed Patient: Beverly Moss MR#: [id number] : 1990 Acct:[id number] Age/Sex: 34 / F Date of Service: 10/15/24 Loc: ED Accession Number: [id number] Procedure: XR chest 1V Ordering Provider: Loyda Machado D.O. PROCEDURE: XR CHEST 1V INDICATIONS: chest pain TECHNIQUE: One view of the chest was acquired. COMPARISON: None. FINDINGS: Surgical changes and devices: None. Lungs and pleura: Lungs are clear. No pleural effusions or pneumothorax. Mediastinum: Mediastinal contours appear normal. Heart size is normal. Bones and chest wall: No suspicious bony lesions. Overlying soft tissues appear unremarkable. IMPRESSION: No acute cardiopulmonary abnormality is seen. Dictated by: Moisés Benz M.D. on 10/15/2024 at 16:31 Approved by: Moisés Benz M.D. on 10/15/2024 at 16:31 ECG Data Attestation: I personally reviewed and interpreted this ECG as follows: Interpretation: 1612, normal sinus rhythm with rate of 93, no obvious ST segment elevation or depression changes. Flat T-waves lead 3 and F noted but upright in lead 2. NE 162, QRS 78, QTC 455. MDM Narrative Medical decision making narrative: 34-year-old female with intermittent chest pain since yesterday. No history of CAD, no risk factors CAD. Heart score = 0. EKG and serial troponins negative. Chest x-ray unremarkable. Advised use of baby aspirin and antacid. Follow up with Cardiology, contact information provided, though referral might be required from PCP, or PCP might prefer working with different cardiologists symptoms on- call. Return precautions discussed Discharge Plan Departure Patient Disposition: Home Clinical Impression: Chest pain Activity Restrictions/Additional Instructions: Intermittent chest pain since early last morning, through the day, unclear etiology. No known history of coronary artery disease. EKG and serial blood tests not suggestive of heart attack at this time, chest x-ray no acute changes. Other blood tests reassuring. Consider baby aspirin daily, consider [id number] antacid treatment daily. Consider further evaluation as an outpatient for now, that might involve cardiac stress testing. Consider discussing with your regular primary care provider in the next few days. Consider Cardiology evaluation as an outpatient, contact information given for food mixer assembler on-call, though you might require a referral from your primary care provider, and your primary care provider might work with a different food mixer assembler. Return earlier to this/nearest emergency department for any change worsening symptoms or any concerns prior Prescriptions: No Action prenat.vits,дмитрий,[id number] Tablet 1 tab PO DAILY pyridoxine (vitamin B6) 100 mg tablet 50 mg PO DAILY Unisom (doxylamine) 25 mg tablet 25 mg PO BEDTIME PRN Referrals: Mukesh Riggs MD [Physician] - Brooks Bird DO [Primary Care Provider] - Stand Alone Forms: Patient Portal/API/Survey
[2024-10-16] VITALS: BP 141/82; PULSE 74; O2SAT 97
[2024-10-16 00:30] VITALS: BP 146/82; PULSE 77; RESP 18; O2SAT 99
[2024-10-16 01:00] VITALS: BP 145/84; PULSE 72; O2SAT 97
== END 2024-10-16 01:17 | disposition home or self-care (01) ==
PROVIDERS: Emergency Medicine; Emergency Provider Emergency Medicine; PCP Family Medicine
DX: R07.9 Chest pain, unspecified (principal); I10 Essential (primary) hypertension
CPT/HCPCS: 36415; 71045; 80053; 82550; 83690; 83735; 83880; 84484; 85025; 85610; 85730; 93005; 93010; 99284